=== PATIENT | male | born 1975 | race American Indian/Alaskan Native ===

== ENCOUNTER 2020-12-20 11:23 | Emergency (ER) | payer MEDICAID ==
[2020-12-20 12:45] VITALS: BP 85/49
[2020-12-20] MEDS ORDERED: SODIUM CHLORIDE 0.9% 500 ML 500 ML IV ONE (12:46)
[2020-12-20 13:46] LABS: Basophils % (Auto) 0.4 % (0.0-1.8); Eosinophils % (Auto) 0.2 % (0.0-4.3); Hemoglobin 13.2 gm/dl (11.8-15.2); Lymphocytes # (Auto) 1.9 K/mm3 (1.2-5.4); Lymphocytes % (Auto) 22.5 % (13.4-35.0); Mean Corpuscular HGB Conc 33 % (32-34); Mean Corpuscular Volume 90 fl (84-94); Monocytes # (Auto) 0.5 K/mm3 (0.0-0.8); Monocytes % (Auto) 5.5 % (0.0-7.3); Platelet Count 203 K/mm3 (140-440); Red Blood Count 4.45 M/mm3 (3.65-5.03); Red Cell Distribution Width 13.5 % (13.2-15.2)
[2020-12-20 13:55] LABS: INR 0.88 (0.87-1.13)
[2020-12-20 14:00] LABS: Alanine Aminotransferase 14 units/L (7-56); Albumin 4.5 g/dL (3.9-5); BUN/Creatinine Ratio 15; Blood Urea Nitrogen 16 mg/dL (9-20); Calcium 10.1 mg/dL (8.4-10.2); Hemolysis Index 2
--- NOTE | 2021-01-20 08:38 | ED Elopement Review ---
ED Pt Elopement review - Results review Lab results: I did not evaluate this patient Laboratory Tests 12/20/20 12/20/20 12/20/20 13:01 13:01 13:01 WBC 8.3 RBC 4.45 Hgb 13.2 Hct 40.0 MCV 90 MCH 30 MCHC 33 RDW 13.5 Plt Count 203 Lymph % (Auto) 22.5 Lane % (Auto) 5.5 Eos % (Auto) 0.2 Baso % (Auto) 0.4 Lymph # (Auto) 1.9 Lane # (Auto) 0.5 Eos # (Auto) 0.0 Baso # (Auto) 0.0 Seg Neutrophils % 71.4 H Seg Neutrophils # 5.9 PT 12.4 INR 0.88 VBG pH Sodium 129 L Potassium 4.7 Chloride 86.8 L Carbon Dioxide 22 Anion Gap 25 BUN 16 Creatinine 1.1 Estimated GFR > 60 BUN/Creatinine Ratio 15 Glucose 367 H Lactic Acid Calcium 10.1 Total Bilirubin 0.50 AST 13 ALT 14 Alkaline Phosphatase 72 Total Protein 7.9 Albumin 4.5 Albumin/Globulin Ratio 1.3 12/20/20 12/20/20 13:01 13:01 WBC RBC Hgb Hct MCV MCH MCHC RDW Plt Count Lymph % (Auto) Lane % (Auto) Eos % (Auto) Baso % (Auto) Lymph # (Auto) Lane # (Auto) Eos # (Auto) Baso # (Auto) Seg Neutrophils % Seg Neutrophils # PT INR VBG pH 7.285 L Sodium Potassium Chloride Carbon Dioxide Anion Gap BUN Creatinine Estimated GFR BUN/Creatinine Ratio Glucose Lactic Acid 1.60 Calcium Total Bilirubin AST ALT Alkaline Phosphatase Total Protein Albumin Albumin/Globulin Ratio I did not evaluate this patient
== END 2020-12-20 14:11 ==
LOC: ED 11:23
DX: I95.9 Hypotension, unspecified (principal); E11.8 Type 2 diabetes mellitus with unspecified complications; Z53.21 Procedure and treatment not carried out due to patient leaving prior to being seen by health care provider
CPT/HCPCS: 36415; 80053; 82140; 82805; 85025; 85610; 87040